=== PATIENT | female | born 2000 | race Caucasian/White ===

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

== ENCOUNTER → 2020-10-21 15:46 | Outpatient (BNVA) | payer OTHER, SELFPAY | PROVIDERS: Family Provider Nurse Practitioner Family; PCP Nurse Practitioner Family; Visit Provider Nurse Practitioner Family | DX: R50.9 Fever, unspecified (principal); J02.9 Acute pharyngitis, unspecified; Z11.52 Encounter for screening for COVID-19 | CPT/HCPCS: 87071; 87635; 87880 ==

== ENCOUNTER → 2022-03-18 10:13 | Outpatient (BNVA) | payer SELFPAY | PROVIDERS: Family Provider Nurse Practitioner Family; PCP Nurse Practitioner Family; Visit Provider Nurse Practitioner Family | DX: D69.9 Hemorrhagic condition, unspecified (principal); R23.3 Spontaneous ecchymoses | CPT/HCPCS: 83540; 85025 ==

== ENCOUNTER 2023-03-22 08:15 | Emergency (ER) | payer SELFPAY ==
[2023-03-22 08:27] VITALS: BP 123/80; PULSE 84; TEMP 36.4; O2SAT 100; BMI 19.5
--- NOTE | 2023-03-22 08:30 | ED_ITS ---
HPI - Nausea/Vomiting/Diarrhea 2 General: Chief complaint: Nausea/Vomiting/Diarrhea Stated complaint: hours of vomiting Time Seen by Provider: 03/22/23 08:16 Source: patient Mode of arrival: ambulatory History of Present Illness: 23-year-old female presents emergency ro om with complaint of persistent nausea vomiting after a night of heavy drinking. Patient states that she drank large amount of hard liquor and this morning is having abdominal discomfort and multiple episodes of vomiting. She denies any hematemesis or coffee-ground emesis. She states this has happened often when I get super drunk MD elicited complaint: other ( I am too hung over ) Associated nausea: Yes Location of pain: Epigastric Associated symtoms: Reports anorexia and nausea; Denies altered mental status, anxiety, bloating, change in vision, chest pain, cough, diaphoresis, decreased urine output, dizziness, dysuria, epistaxis, fatigue, fecal incontinence, fevers/chills, headache(s), malaise, myalgias, numbness, palpitations, rash, short of breath, syncope, tenesmus, tinnitus or weakness Review of Systems 2 Const: Denies: fever(s), chills, fatigue, malaise or diaphoresis Eyes: Denies: change in vision ENMT: Denies: tinnitus or epistaxis Card: Denies: chest pain, palpitations or syncope Resp: Denies: dyspnea GI: Reports: abdominal pain, nausea, vomiting and diarrhea; Denies: hematemesis, coffee ground emesis, bloating, fecal incontinence, hematochezia or melena : Denies: dysuria, urinary frequency or urinary urgency Musc: Denies: neck pain or back pain Skin/Breast: Denies: rash Neuro: Denies: headache(s) or dizziness Psych: Denies: anxiety PFSH ED 2 PFSH: Medical History History of spleen injury Pt had a hematoma removed from spleen 2019 ADHD Family History Family/Other Diabetes Paternal Hypercholesteremia Paternal aunt Hypertension Paternal Aunt Grandmother Heart disease Paternal Hypercholesteremia Paternal Hypertension Paternal Father Hypertension Denies family history of Colon cancer Ovarian cancer Breast cancer Uterine cancer Thyroid disease Stroke Social History Smoking and tobacco/nicotine status: current every day tobacco/nicotine user e- cigarettes Alcohol intake: never Substance/Drug Use: never Lives independently: No Household members: family Housing: House Marital status: Single Number of children: 0 Highest education level completed: High School Graduate Current occupational status: employed Current occupation: [employer] Current gender identity: Female Female Reproductive History: Spontaneous abortions: No Physical Exam 2 Const: COMMON NORMALS: no acute distress EXAM LIMITATIONS: no altered mental status GENERAL APPEARANCE: cooperative and comfortable O RIENTATION/CONSCIOUSNESS: Yes awake, Yes oriented to person, Yes oriented to place and Yes oriented to time HENMT: COMMON NORMALS: normocephalic, atraumatic and hearing grossly normal bilaterally HEAD & SCALP: normocephalic and atraumatic Resp: COMMON NORMALS: normal respiratory effort, No retractions, No use of accessory muscles and clear to auscultation bilaterally AUSCULTATION: clear to auscultation bilaterally Cardio: COMMON NORMALS: regular rate, regular rhythm and No murmurs present (Cardio) RATE: regular rate RHYTHM: regular rhythm GI: COMMON NORMALS: Soft to palpation and No hepatosplenomegaly present A USCULTATION: Yes normoactive bowel sounds PALPATION: Yes Soft to palpation, No Tenderness to palpation present (GI), No Guarding due to palpation present (GI) and Yes No hepatosplenomegaly present Extremity: COMMON NORMALS: normal to inspection, capillary refill normal, no clubbing, cyanosis or edema, no calf tenderness and no pedal edema Neuro: SENSORIUM/ORIENTATION: Yes oriented to person, Yes oriented to place and Yes oriented to time Skin: COMMON NORMALS: no rashes or lesions noted GENERAL SKIN EXAM: no rashes or lesions noted Course 2 Vital Signs: Vital signs: Vital Signs Temperature 97.5 F L 03/22/23 08:27 Pulse Rate 82 03/22/23 09:01 Blood Pressure 139/104 03/22/23 09:01 Pulse Oximetry 99 03/22/23 09:01 Oxygen Delivery Me thod Room Air 03/22/23 09:01 MDM - Nausea/Vomiting/Diarrhea Medical Decision Making Acute alcohol induced gastritis secondary to alcohol abuse with binge drinking. Patient has had similar symptoms associated with binge drinking in the past. Every time I drink like that this happens. Carafate and Zofran to use as needed. Recommend abstinence from alcohol Medical Records I reviewed the patient's medical records. Lab Data I reviewed the patient's lab results. 03/22/23 08:40 03/22/23 08:40 Laboratory Results WBC 4.49 10^3/uL (3.29-11.43) 03/22/23 08:40 RBC 3.94 10^6/uL (3.85-5.65) 03/22/23 08:40 Hgb 12.10 g/dL (11.27-16.99) 03/22/23 08:40 Hct 35.5 % (36-47) L 03/22/23 08:40 MCV 90.1 fl (85-98) 03/22/23 08:40 MCH 30.7 pg (27-33) 03/22/23 08:40 MCHC 34.1 g/dL (30-55) 03/22/23 08:40 RDW 12.1 % (12.1-15.1) 03/22/23 08:40 Plt Count 286 10^3/cmm (157-399) 03/22/23 08:40 MPV 10.4 fL (7.4-10.4) 03/22/23 08:40 Neut % (Auto) 61.8 % 03/22/23 08:40 Lymph % (Auto) 26.5 % 03/22/23 08:40 [place] % (Auto) 7.3 % 03/22/23 08:40 Eos % (Auto) 3.1 % 03/22/23 08:40 Baso % (Auto) 1.1 % 03/22/23 08:40 Neut # (Auto) 2.77 10^3/uL (1.8-7.7) 03/22/23 08:40 Lymph # (Auto) 1.2 10^3/uL (0.8-4.8) 03/22/23 08:40 [place] # (Auto) 0.3 10^3/uL (0.2-0.9) 03/22/23 08:40 Eos # (Auto) 0.1 10^3/uL (0.0-0.8) 03/22/23 08:40 Baso # (Auto) 0.1 10^3/uL (0.0-0.1) 03/22/23 08:40 Nucleated RBC % (auto) 0 % 03/22/23 08:40 Nucleated RBCs # 0.0 /100WBC 03/22/23 08:40 Sodium 137 mmol/L (136-145) 03/22/23 08:40 Potassium 4.0 mmol/L (3.5-5.1) 03/22/23 08:40 Chloride 102 mmol/L (98-107) 03/22/23 08:40 Carbon Dioxide 24 mmol/L (22-29) 03/22/23 08:40 Anion Gap 15.0 (5-19) 03/22/23 08:40 BUN 8 mg/dL (6-20) 03/22/23 08:40 Creatinine 0.6 mg/dL (0.5-0.9) 03/22/23 08:40 GFR Calculation 123.9 mL/min (90-130) 03/22/23 08:40 Glucose 128 mg/dL (65-115) H 03/22/23 08:40 Calculated Osmolality 284 mOsm/kg (285-295) L 03/22/23 08:40 Calcium 9.2 mg/dL (8.5-10.5) 03/22/23 08:40 Total Bilirubin 0.2 mg/dL (0.15-1.2) 03/22/23 08:40 AST 17 U/L (0-32) 03/22/23 08:40 ALT 17 U/L (0-33) 03/22/23 08:40 Alkaline Phosphatase 37 U/L (35-105) 03/22/23 08:40 Total Protein 7.2 g/dL (6.6-8.7) 03/22/23 08:40 Albumin 4.2 g/dL (3.5-5.2) 03/22/23 08:40 Globulin 3.0 g/dL (1.3-4.6) 03/22/23 08:40 HCG, Qual Negative (Negative) 03/22/23 08:40 No radiology studies performed this visit Discharge Plan Discharge Patient Disposition: Home Clinical Impression: Acute alcoholic gastritis, Alcohol abuse with alcohol-induced disorder, Alcohol consumption binge drinking Condition: Stable Prescriptions: New Carafate 1 gram tablet 1 g PO Q6H 28 Days Qty: 112 0RF ondansetron 4 mg tablet,disintegrating 4 mg PO Q6H PRN (Reason: nausea and vomiting) Qty: 5 0RF No Action albuterol sulfate 90 mcg/actuation Hfa Aerosol Inhaler 2 puff INHALATION QID PRN (Reason: Shortness Of Breath) Tri-Sprintec (28) 0.18/0.215/0.25 mg-35 mcg (28) tablet 1 tab PO BEDTIME Discharge Orders: Discharge ED (Routine); Ordered 03/22/23 Ordered By: Loyd Oneill Referrals: No Mccurdy FNP-C [Primary Care Provider] - Discharge Diet: Clear Liquid Discharge Activity: Increase activity as tolerated Patient Instructions: Abuse of Alcohol (ED), At-Risk Alcohol Use (ED), Alcohol Use Disorder (ED), Opioid Safety, Pain Management Activity Restrictions/Additional Instructions: Thank you for choosing [facility] for your healthcare needs today. Please realize this is an emergency room and that we are providing you with a medical screening exam and this may not be complete and all inclusive of all the testing and or work up that you may need to determine your ailment or severity of your illness. It is very important that you follow up as instructed or that you return to the Emergency Department should you have concerns or if your condition changes or worsens in any way. Recommend abstaining from alcohol. Consider attending Alcoholics Anonymous or being evaluated at an outpatient facility such as [facility] . Coding Level of Care Code ED Electric Vehicle Electrician for Dusty Ambrose
[2023-03-22] MEDS: ondansetron 2 mg/ML SDV 2 mL 4 MG IVP (08:43)
[2023-03-22] MEDS: lidocaine 2% viscous 15 ML, aluminum-mag hydrox-simethicon 30 ML, sucralfate oral liq 1 GM PO (08:55)
[2023-03-22] MEDS: sodium chloride 0.9% 1,000 ML 999 ML IV ×2 (08:55→09:40)
[2023-03-22 09:01] VITALS: BP 139/104; PULSE 82; O2SAT 99
[2023-03-22 09:18] LABS: Basophils # 0.1 10^3/uL (0.0-0.1); Basophils % 1.1 %; Eosinophils # 0.1 10^3/uL (0.0-0.8); Eosinophils % 3.1 %; Hematocrit 35.5 % (36-47); Lymphocytes # 1.2 10^3/uL (0.8-4.8); Lymphocytes % 26.5 %; Mean Corpuscular HGB Conc 34.1 g/dL (30-55); Mean Corpuscular Hemoglobin 30.7 pg (27-33); Mean Corpuscular Volume 90.1 fl (85-98); Mean Platelet Volume 10.4 fL (7.4-10.4); Monocytes # 0.3 10^3/uL (0.2-0.9); Monocytes % 7.3 %; Neutrophils # 2.77 10^3/uL (1.8-7.7); Neutrophils % 61.8 %; Nucleated Red Blood Cells % 0 %; Platelet Count 286 10^3/cmm (157-399); Red Blood Count 3.94 10^6/uL (3.85-5.65); Red Cell Distribution Width 12.1 % (12.1-15.1); White Blood Count 4.49 10^3/uL (3.29-11.43)
[2023-03-22 09:37] LABS: Alanine Aminotransferase 17 U/L (0-33); Albumin Level 4.2 g/dL (3.5-5.2); Alkaline Phosphatase 37 U/L (35-105); Aspartate Amino Transferase 17 U/L (0-32); Blood Urea Nitrogen 8 mg/dL (6-20); Calcium 9.2 mg/dL (8.5-10.5); Carbon Dioxide 24 mmol/L (22-29); Chloride 102 mmol/L (98-107); Creatinine Clr Calc Pharmacy 118.3225; Glomerular Filtration Rate 123.9 mL/min (90-130); Glucose 128 mg/dL (65-115); HCG, Serum Qual Negative (Negative); Osmolality Calculated 284 mOsm/kg (285-295); Sodium 137 mmol/L (136-145); Total Bilirubin 0.2 mg/dL (0.15-1.2); Total Protein 7.2 g/dL (6.6-8.7)
[2023-03-22 10:13] VITALS: BP 119/94; PULSE 82; O2SAT 96
== END 2023-03-22 10:15 | disposition home or self-care (01) ==
PROVIDERS: Emergency Provider Family Medicine; PCP Nurse Practitioner Family
DX: K29.20 Alcoholic gastritis without bleeding (principal); F10.188 Alcohol abuse with other alcohol-induced disorder; F17.290 Nicotine dependence, other tobacco product, uncomplicated
CPT/HCPCS: 80053; 84703; 85025; 96361; 96374; 99284; J2405; J7030

== ENCOUNTER 2023-07-28 14:14 | Outpatient (CLI) | payer SELFPAY ==
--- NOTE | 2023-07-28 14:18 | XRR_ITS ---
PROCEDURE INFORMATION: Exam: XR Right Hand Exam date and time: 07/28/2023 2:24 PM Age: 23 years old Clinical indication: Injury or trauma; Other: Closed car door on thumb; Crushing; Finger and hand; Right; Injury date: 07/27/23; Additional info: R thumb pain/closed car door onto R thumb TECHNIQUE: Imaging protocol: Radiologic exam of the right hand. Views: 1 or 2 views. COMPARISON: No relevant prior studies available. FINDINGS: Bones/joints: Normal. Soft tissues: Normal. XR/XR hand RT 2V [id number] IMPRESSION: No acute findings.
== END 2023-07-28 14:15 | disposition home or self-care (01) ==
LOC: RAD 14:16
PROVIDERS: PCP Nurse Practitioner Family; Visit Provider Nurse Practitioner Family
DX: M79.644 Pain in right finger(s) (principal)
CPT/HCPCS: 73120

== ENCOUNTER → 2024-02-10 12:15 | Outpatient (BNVA) | payer MEDICAID, SELFPAY | PROVIDERS: PCP Nurse Practitioner Family; Visit Provider Nurse Practitioner Women's Health | DX: Z12.4 Encounter for screening for malignant neoplasm of cervix (principal) | CPT/HCPCS: 87624 ==

== ENCOUNTER → 2024-04-13 09:14 | Outpatient (BNVA) | payer MEDICAID, SELFPAY | PROVIDERS: PCP Nurse Practitioner Family; Visit Provider Nurse Practitioner Family | DX: J02.9 Acute pharyngitis, unspecified (principal) | CPT/HCPCS: 87071; 87880 ==